=== PATIENT | female | born 1990 ===

== ENCOUNTER 2018-04-21 09:36 | Outpatient (REF) | payer SELFPAY | END 2018-04-21 09:37 | LOC: OM 09:36 | PROVIDERS: Visit Provider Nurse Practitioner Family | DX: Z02.83 Encounter for blood-alcohol and blood-drug test (principal) ==

== ENCOUNTER 2018-04-21 09:37 | Outpatient (REF) | payer SELFPAY | END 2018-04-21 09:38 | LOC: OM 09:37 | PROVIDERS: Visit Provider Nurse Practitioner Family | DX: Z02.83 Encounter for blood-alcohol and blood-drug test (principal) ==